=== PATIENT | female | born 1965 | race Caucasian/White ===

== ENCOUNTER 2020-09-18 21:32 | Emergency (ER) | payer OTHER ==
[~2020-09-18] VITALS: Ht 160 cm; Wt 72.6 kg
[2020-09-18 22:05] VITALS: BP 170/90
--- NOTE | 2020-09-18 22:50 | NUR ---
RECEIVED IN CHAIR A WITH C/O RIGHT WRIST AND HAND PAIN X 6 DAYS. WAS MOVING "A SPEAKER" AND FELT A SHARP PAIN AFTER. SPLINT APPLIED. NOW C/O PAIN AND SWELLING. SPLINT HAS NOT BEEN RELEASED. SWELLING NOTED WITH DECREASED ROM TO RIGHT HAND
--- NOTE | 2020-09-18 22:57 | NUR ---
DR. FLORES AT CHAIRSIDE FOR EXAM
[2020-09-18] MEDS ORDERED: HYDROcodone/APAP 5/325 MG 1 TAB TAB PO ONE (23:05)
[2020-09-18 23:50] VITALS: BP 170/90
--- NOTE | 2020-09-18 23:50 | NUR ---
Patient discharged with v/s stable. Written and verbal after care instructions given and explained. Patient alert, oriented and verbalized understanding of instructions. Ambulatory with steady gait. All questions addressed prior to discharge. ID band removed. Patient advised to follow up with PMD. Rx of NAPROSYN & NORCO given. Patient educated on indication of medication including possible reaction and side effects. Opportunity to ask questions provided and answered.
== END 2020-09-18 23:50 | disposition home or self-care (01) ==
LOC: MED 21:32
DX: S63.501A Unspecified sprain of right wrist, initial encounter (principal); E11.9 Type 2 diabetes mellitus without complications; X50.0XXA Overexertion from strenuous movement or load, initial encounter; Y93.89 Activity, other specified; Y92.89 Other specified places as the place of occurrence of the external cause; Y99.8 Other external cause status
CPT/HCPCS: 73090; 73110; 99284